=== PATIENT | male | born 1990 | race Caucasian/White ===

== ENCOUNTER 2021-07-13 04:48 | Emergency (ER) | payer SELFPAY ==
[~2021-07-13] VITALS: Ht 185.4 cm; Wt 81.8 kg
[2021-07-13] MEDS ORDERED: CONTRAST GIVEN. MC PRN (05:15)
--- NOTE | 2021-07-13 05:24 | PHYS DOC ---
General Adult EDM: Chief Complaint: ABDOMINAL PAIN HPI: HPI: 31-year-old male transgender to female presents with epigastric abdominal pain. Patient states that the pain started about 2 hours ago out of nowhere. The patient has a known gallstone diagnosed a few years ago. The patient has not chosen to have surgery to have the gallbladder removed. No specific reason was given. The patient denies history of pancreatitis or significant alcohol use. The patient has not had a flareup of abdominal pain in "a long time". (BRIANA KINGSLEY DO) Review of Systems: Review of Systems: Constitutional: Denies fever or chills Eyes: Denies change in visual acuity HENT: Denies nasal congestion or sore throat Respiratory: Denies cough or shortness of breath Cardiovascular: Denies chest pain or edema GI: Epigastric abdominal pain, nausea. : Denies dysuria Musculoskeletal: Denies back pain or joint pain Integument: Denies rash Neurologic: Denies headache, focal weakness or sensory changes Endocrine: Denies polyuria or polydipsia Lymphatic: Denies swollen glands Psychiatric: Denies depression or anxiety (BRIANA KINGSLEY DO) Current Medications: Current Meds: Current Medications Medications (Trade) Dose Ordered Sig/Mari Start Time Stop Time Status Last Admin Dose Admin Info (Do NOT chart on this entry -- for MONITORING) 1 each PRN DAILY PRN 07/13/21 05:15 07/15/21 05:14 Iohexol (Omnipaque 300 Mg/ml) 75 ml 1X ONCE 07/13/21 05:30 07/13/21 05:31 Morphine Sulfate (Morphine 4mg Syringe) 4 mg 1X ONCE 07/13/21 05:45 07/13/21 05:46 Ondansetron HCl (Zofran) 4 mg 1X ONCE 07/13/21 05:30 07/13/21 05:31 Sodium Chloride 1,000 ml @ 1,000 mls/hr 1X ONCE 07/13/21 05:30 07/13/21 06:29 (BRIANA IKNGSLEY DO) Allergies: Allergies: Allergies Coded Allergies Type Severity Reaction Last Updated Verified Sulfa (Sulfonamide Antibiotics) Allergy Intermediate 07/13/21 Yes sulfamethoxazole Allergy Intermediate 07/13/21 Yes trimethoprim Allergy Intermediate 07/13/21 Yes (BRIANA KINGSLEY DO) Physical Exam: PE: Constitutional: Well developed, well nourished, no acute distress, non-toxic appearance. [] HENT: Normocephalic, atraumatic, bilateral external ears normal, oropharynx moist, no oral exudates, nose normal. [] Eyes: PERRLA, EOMI, conjunctiva normal, no discharge. [] Neck: Normal range of motion, no tenderness, supple, no stridor. [] Cardiovascular: Heart rate regular rhythm, no murmur [] Lungs & Thorax: Bilateral breath sounds clear to auscultation [] Abdomen: Bowel sounds normal, soft, epigastric tenderness, no masses, no pulsatile masses. [] Skin: Warm, dry, no erythema, no rash. [] Back: No tenderness, no CVA tenderness. [] Extremities: No tenderness, no cyanosis, no clubbing, ROM intact, no edema. [] Neurologic: Alert and oriented X 3, normal motor function, normal sensory function, no focal deficits noted. [] Psychologic: Affect normal, judgement normal, mood normal. [] (BRAINA KINGSLEY DO) Current Patient Data: Vital Signs: Vital Signs Date Time Temp Pulse Resp B/P (MAP) Pulse Ox O2 Delivery O2 Flow Rate FiO2 07/13/21 04:56 98.0 60 22 133/83 (100) 98 Room Air (BRIANA KINGSLEY DO) EKG: EKG: [] (BRIANA KINGSLEY DO) Radiology/Procedures: Radiology/Procedures: [] (BRIANA KINGSLEY DO) Radiology/Procedures: IMAGING REPORT Signed PATIENT: TAHIR GAYLE ACCOUNT: [id number] : 1990 LOCATION: ER AGE: 31 SEX: M EXAM STATUS: REG ER ORD. PHYSICIAN: SRIRAM ODELL DO REASON: RUQ PAIN, KNOWN CHOLELITHIASIS PROCEDURE: ABDOMEN OR LWR BACK LTD Exam Date: 07/13/2021 7:34 AM US ABDOMEN OR LOWER BACK LIMITED Indication: Reason: RUQ PAIN, KNOWN CHOLELITHIASIS / Spl. Instructions: / History: . TECHNIQUE: Multiple longitudinal and transverse sonographic images of the right upper quadrant and gallbladder are submitted for interpretation. COMPARISON: CT from are the same day FINDINGS: The liver is enlarged up to a 18.9 cm with normal echogenicity. The portal vein is patent, with hepatopetal flow. No focal intrahepatic abnormality is seen. There is a 2.0 cm nonmobile calculus in the gallbladder neck. The cable installation manager reported a positive sonographic Renteria sign. There is no gallbladder wall thickening or pericholecystic fluid. There is no biliary ductal dilatation, with the common bile duct measuring 2 mm. The visualized abdominal aorta, inferior vena cava and pancreas are within normal limits. There is no upper abdominal ascites. The right kidney is normal in appearance, measuring 11.7 cm. IMPRESSION: Gallstone with reported positive sonographic Renteria sign is consistent with acute cholecystitis. However, clinical correlation is recommended to confirm a positive Renteria sign on clinical exam. If clinically indicated, further evaluation can be performed with nuclear medicine hepatobiliary scan. Hepatosplenomegaly. Electronically signed by: Sara Caldwell MD (07/13/2021 7:59 AM) [id number] DICTATED AND SIGNED BY: SARA CALDWELL MD DATE: 07/13/21 0756 CC: PCP,ALEX; SRIRAM ODELL DO ~MTH0 0 IMAGING REPORT Signed PATIENT: TAHIR GAYLE ACCOUNT: [id number] : 1990 LOCATION: ER AGE: 31 SEX: M EXAM STATUS: REG ER ORD. PHYSICIAN: BRIANA KINGSLEY DO REASON: RUQ pain, nausea, vomiting. Hx: Gallstones Omni 300 75cc PROCEDURE: CT ABD PELV W/ IV CONTRST ONLY EXAM: CT Abdomen and Pelvis with IV contrast CLINICAL HISTORY: Reason: RUQ pain, nausea, vomiting. Hx: Gallstones Omni 300 75cc COMPARISON: none TECHNIQUE: Helical CT of the abdomen and pelvis was performed following the administration of intravenous contrast. Axial, coronal and sagittal reformatted images were generated. PQRS compliance statement - One or more of the following individualized dose reduction techniques were utilized for this study: 1. Automated exposure control 2. Adjustment of the mA and/or kV according to patient size 3. Use of iterative reconstruction technique FINDINGS: Lower Chest: Lung bases are clear. Abdomen and Pelvis: Spleen, adrenal glands, pancreas and liver are unremarkable. Gallbladder is distended but otherwise unremarkable. No biliary ductal dilatation. Symmetric nephrograms. No focal renal lesion. No hydronephrosis. No hydroureter. Bladder is unremarkable. Calcification within the appendix, appendicolith. No appendiceal wall thickening or or periappendiceal infiltration. No abdominal or pelvic ascites. No abdominal or pelvic lymphadenopathy. Moderate colonic stool content. No bowel obstruction. Trace fat-containing periumbilical hernia is seen. No aggressive osseous lesion is seen. Os acetabuli bilaterally incidentally seen. IMPRESSION: 1. Gallbladder is distended but otherwise normal in appearance by CT. No CT evidence for acute cholecystitis. 2. No bowel obstruction. 3. Moderate colonic stool content can be correlated for possible constipation. Electronically signed by: Herminio Arias MD (07/13/2021 6:27 AM) [facility] DICTATED AND SIGNED BY: HERMINIO ARIAS MD DATE: 07/13/21624 CC: BRIANA KINGSLEY DO; PCP,NO; SRIRAM ODELL DO ~MTH0 0 (SRIRAM ODELL DO) Heart Score: C/O Chest Pain: N/A Risk Factors: Risk Factors: DM, Current or recent (<one month) smoker, HTN, HLP, family history of CAD, obesity. Risk Scores: Score 0 - 3: 2.5% MACE over next 6 weeks - Discharge Home Score 4 - 6: 20.3% MACE over next 6 weeks - Admit for Clinical Observation Score 7 - 10: 72.7% MACE over next 6 weeks - Early Invasive Strategies (BRIANA KINGSLEY DO) C/O Chest Pain: No (SRIRAM ODELL DO) Course & Med Decision Making: Course & Med Decision Making Pertinent Labs and Imaging studies reviewed. (See chart for details) The patient's workup is pending at this time. He was given fluids, Zofran and pain medication. The patient has been signed out to the day shift. [] (BRIANA KINGSLEY DO) Course & Med Decision Making I received signout at shift change from Dr. Kingsley. Patient presents to the ED with concern for upper abdominal pain with nausea and vomiting. On my exam patient does have a positive Renteria sign. Patient does not meet sepsis criteria, is hemodynamically stable. Patient is calm and in no distress at rest. I am concerned for acute cholecystitis-I educated patient that this is treated surgically. I recommended transfer to [facility] for surgery consultation. Patient made aware that most emergency departments are on high volume due to the COVID-19 pandemic and that leaving AMA could delay further medical care/treatment, increase risk of sepsis/perforati on/ileus/gangrene/. I am unable to convince pt to be transferred to [facility]-pt states "I feel fine now." The patient has decided to leave our facility against medical advice. I have assessed patient's ability to make informed decision and feel the patient has the capacity to comprehend information regarding the current medical condition and appreciates the impact of the disease or condition and the consequences of various options for treatment, including foregoing treatment. The patient possesses the ability to evaluate all treatment options, comparing the risks and benefits of each option, communicate his or her choice in a consistent manner over time, and is able to make rational choices. I explained to the patient further testing, treatment, and evaluation I would like to perform in the emergency department visit as well as any possible alternatives that can be accomplished in a timely manner. I have outlined the possible risks of foregoing any or all of these interventions and the patient understands and acknowledges that the decision to leave may result in undesirable consequences such as , permanent disability, and/or loss of current lifestyle. Even though leaving AMA is not ideal, I have instructed the patient to follow any discharge instructions given, take any medications prescribed, and resume care as soon as possible with another provider. This conversation was witnessed by another member of the emergency department staff (RN) and we clearly communicated the patient is welcome to return anytime to continue care at our facility. (SRIRAM ODELL DO) Dragon Disclaimer: Dragon Disclaimer: This electronic medical record was generated, in whole or in part, using a voice recognition dictation system. (BRIANA KINGSLEY DO) Departure Departure: Impression: Primary Impression: Acute cholecystitis Additional Impressions: Left against medical advice Constipation Disposition: 07 LEFT AGAINST MEDICAL ADVICE Condition: STABLE Referrals: PCP,NO (PCP) Follow up with your pcp in 1-2 days or [facility] Terence Gill [phone] OR [facility]-Dr. Villela [phone] Patient Instructions: Cholecystitis, Cholelithiasis, Discharge Against Medical Advice Additional Instructions: FOLLOW UP WITH SURGERY: FOR DEFINITIVE MANAGEMENT in 24 hours OR RETURN TO THE EMERGENCY DEPARTMENT IMMEDIATELY [facility] General Surgery Address: [address] [place] [address], [address] [place] [address] EMERGENCY DEPARTMENT GENERAL DISCHARGE INSTRUCTIONS Thank you for coming to [facility] (ED) today and trusting us with you care. We trust that you had a positivie experience in our Emergency Department. If you wish to speak to the department management, you may call the director at [phone]. YOUR FOLLOW UP INSTRUCTIONS ARE FOLLOWS: 1. Do you have a private Doctor? If you do not have a private doctor, please ask for a resource list of physicians or clinics that may be able to assist you with follow up care. 2. The Emergency Physician has interpreted your x-rays. The X-Ray specialist will also review them. If there is a change in the findings, you will be notified in 48 hours when at all possible. 3. A lab test or culture has been done, your results will be reviewed and you will be notified if you need a change in treatment. ADDITIONAL INSTRUCTIONS AND INFORMATION: 1. Your care today has been supervised by a physician who is specially trained in emergency care. Many problems require more than one evaluation for a complete diagnosis and treatment. We recommend that you schedule your follow up appointment as recommended to ensure complete treatment of you illness or injury. If you are unable to obtain follow up care and continue to have a problem, or if your condition worsens, we recommend that you return to the ED. 2. We are not able to safely determine your condition over the phone nor are we able to give sound medical advice over the phone. For these safety reasons, if you call for medical advice we will ask you to come to the ED for further evaluation. 3. If you have any questions regarding these discharge instructions please call the ED at [phone]. SAFETY INFORMATION: In the interest of safety, wellness, and injury prevention; we encourage you to wear your sealbelt, if you smoke; quite smoking, and we encourage family to use a protective helmet for bicycling and other sporting events that present an increased risk for head injury. IF YOUR SYMPTOMS WORSEN OR NEW SYMPTOMS DEVELOP, OR YOU HAVE CONCERNS ABOUT YOUR CONDITION; OR IF YOUR CONDITION WORSENS WHILE YOU ARE WAITING FOR YOUR FOLLOW UP APPOINTMENT; EITHER CONTACT YOUR PRIMARY CARE DOCTOR, THE PHYSICIAN WHOSE NAME AND NUMBER YOU WERE GIVEN, OR RETURN TO THE ED IMMEDIATELY. Scripts Ondansetron (ONDANSETRON ODT) 4 Mg Tab.rapdis 4 MG PO Q6HRS for Nausea/Vomiting, #15 TAB Prov: SRIRAM ODELL DO 07/13/21 Metronidazole (METRONIDAZOLE) 500 Mg Tablet 1 TAB PO BID for cholecystitis for 10 Days, #20 TAB 0 Refills Prov: SRIRAM ODELL DO 07/13/21 Ciprofloxacin Hcl (CIPROFLOXACIN HCL) 500 Mg Tablet 1 TAB PO BID for cholecystitis for 10 Days, #20 TAB Prov: SRIRAM ODELL DO 07/13/21 BRIANA KINGSLEY DO Jul 13, 2021 05:24 SRIRAM ODELL DO Jul 13, 2021 10:09
[2021-07-13 05:30] LABS: BASO % 1 % (0-3); EOS # 0.1 x10^3/uL (0.0-0.7); EOS % 3 % (0-3); HEMATOCRIT 35.5 % (39.0-53.0); HEMOGLOBIN 12.2 g/dL (13.0-17.5); LYMPH # 2.3 x10^3/uL (1.0-4.8); LYMPH % 41 % (24-48); MEAN CORPUSCULAR HEMOGLOBIN 32 pg (25-35); MEAN CORPUSCULAR HGB CONC 34 g/dL (31-37); MEAN CORPUSCULAR VOLUME 92 fL (79-100); MONO # 0.7 x10^3/uL (0.0-1.1); MONO % 12 % (0-9); NEUT # 2.5 x10^3uL (1.8-7.7); NEUT % 44 % (31-73); PLATELET COUNT 303 x10^3/uL (140-400); RED BLOOD COUNT 3.86 x10^6/uL (4.30-5.70); WHITE BLOOD COUNT 5.7 x10^3/uL (4.0-11.0)
[2021-07-13] MEDS ORDERED: IV NORMAL SALINE 1,000ML 1,000 ML IV ONE (05:30)
[2021-07-13] MEDS ORDERED: IOHEXOL 300 MG/ML 75 ML VIAL. IV ONE (05:30)
[2021-07-13] MEDS ORDERED: ONDANSETRON PF 4 MG/2 ML VIAL. IVP ONE (05:30)
[2021-07-13] MEDS ORDERED: MORPHINE SULFATE 4 MG/ML DISP.SYRIN. IV ONE (05:45)
[2021-07-13] MEDS ORDERED: diphenhydrAMINE 50 MG/ML VIAL IVP ONE (06:00)
[2021-07-13 06:05] LABS: CALCIUM 8.4 mg/dL (8.5-10.1); GFR 86.1; POTASSIUM 3.9 mmol/L (3.5-5.1)
[2021-07-13 06:11] LABS: ALBUMIN 3.6 g/dL (3.4-5.0); ALBUMIN/GLOBULIN RATIO 1.1 (1.0-1.7); TOTAL BILIRUBIN 0.2 mg/dL (0.2-1.0); TOTAL PROTEIN 6.9 g/dL (6.4-8.2)
--- NOTE | 2021-07-13 06:30 | RAD ---
EXAM: CT Abdomen and Pelvis with IV contrast CLINICAL HISTORY: Reason: RUQ pain, nausea, vomiting. Hx: Gallstones Omni 300 75cc COMPARISON: none TECHNIQUE: Helical CT of the abdomen and pelvis was performed following the administration of intrave nous contrast. Axial, coronal and sagittal reformatted images were generated. PQRS compliance statement - One or more of the following individualized dose reduction techniques wer e utilized for this study: 1. Automated exposure control 2. Adjustment of the mA and/or kV according to patient size 3. Use of iterative reconstruction technique FINDINGS: Lower Chest: Lung bases are clear. Abdomen and Pelvis: Spleen, adrenal glands, pancreas and liver are unremarkable. Gallbladder is distended but otherwise u nremarkable. No biliary ductal dilatation. Symmetric nephrograms. No focal renal lesion. No hydronephrosis. No hydroureter. Bladder is unremarka ble. Calcification within the appendix, appendicolith. No appendiceal wall thickening or or periappendicea l infiltration. No abdominal or pelvic ascites. No abdominal or pelvic lymphadenopathy. Moderate colo gabrielle stool content. No bowel obstruction. Trace fat-containing periumbilical hernia is seen. No aggressive osseous lesion is seen. Os acetabuli bilaterally incidentally seen. IMPRESSION: 1. Gallbladder is distended but otherwise normal in appearance by CT. No CT evidence for acute justo cystitis. 2. No bowel obstruction. 3. Moderate colonic stool content can be correlated for possible constipation. Electronically signed by: Herminio Aguilar MD (07/13/2021 6:27 AM) DELFINO
[2021-07-13 06:51] LABS: BACTERIA,URINE 0 /HPF (0-FEW); BILIRUBIN,URINE NEG (NEG); CLARITY,URINE CLEAR; COLOR,URINE YELLOW; GLUCOSE,URINE NEG (NEG); NITRITE,URINE NEG (NEG); RBC,URINE OCC /HPF (0-2); SQUAMOUS EPITHELIAL CELL,UR FEW /LPF; UROBILINOGEN,URINE 0.2 mg/dL (0.2 mg/dL); WBC,URINE OCC /HPF (0-4)
--- NOTE | 2021-07-13 08:02 | RAD ---
Exam Date: 07/13/2021 7:34 AM US ABDOMEN OR LOWER BACK LIMITED Indication: Reason: RUQ PAIN, KNOWN CHOLELITHIASIS / Spl. Instructions: / History: . TECHNIQUE: Multiple longitudinal and transverse sonographic images of the right upper quadrant and g allbladder are submitted for interpretation. COMPARISON: CT from are the same day FINDINGS: The liver is enlarged up to a 18.9 cm with normal echogenicity. The portal vein is patent, with hepa topetal flow. No focal intrahepatic abnormality is seen. There is a 2.0 cm nonmobile calculus in the gallbladder neck. The motion designer reported a positive so nographic Renteria sign. There is no gallbladder wall thickening or pericholecystic fluid. There is n o biliary ductal dilatation, with the common bile duct measuring 2 mm. The visualized abdominal aorta, inferior vena cava and pancreas are within normal limits. There is n o upper abdominal ascites. The right kidney is normal in appearance, measuring 11.7 cm. IMPRESSION: Gallstone with reported positive sonographic Renteria sign is consistent with acute cholecystitis. How ever, clinical correlation is recommended to confirm a positive Renteria sign on clinical exam. If cli nically indicated, further evaluation can be performed with nuclear medicine hepatobiliary scan. Hepatosplenomegaly. Electronically signed by: Alek Caldwell MD (07/13/2021 7:59 AM) [id number]
[2021-07-13 10:04] VITALS: BP 122/48
[2021-07-13] MEDS ORDERED: CIPR500T2 PO (10:06)
[2021-07-13] MEDS ORDERED: METR-34 PO (10:06)
[2021-07-13] MEDS ORDERED: ONDA4TAB12 PO (10:09)
== END 2021-07-13 10:13 | disposition left against medical advice (07) ==
LOC: ER 04:48
DX: K81.0 Acute cholecystitis (principal); K59.00 Constipation, unspecified; Z88.2 Allergy status to sulfonamides; Z88.1 Allergy status to other antibiotic agents
CPT/HCPCS: 36415; 74177; 76705; 80053; 81001; 83690; 85025; 96361; 96374; 96375; 99285; J1200; J2270; J2405; J7030; Q9967